=== PATIENT | male | born 1960 | race Caucasian/White ===

== ENCOUNTER 2017-01-20 14:51 | Emergency (ER) | payer MEDICARE | END 2017-01-20 16:15 | disposition home or self-care (01) | LOC: ERS 14:51 | DX: S51.801A Unspecified open wound of right forearm, initial encounter (principal); E78.5 Hyperlipidemia, unspecified; I10 Essential (primary) hypertension; N40.0 Benign prostatic hyperplasia without lower urinary tract symptoms; F41.9 Anxiety disorder, unspecified; F31.9 Bipolar disorder, unspecified; F17.210 Nicotine dependence, cigarettes, uncomplicated; Z86.73 Personal history of transient ischemic attack (TIA), and cerebral infarction without residual deficits; Z79.84 Long term (current) use of oral hypoglycemic drugs; Z79.899 Other long term (current) drug therapy; X58.XXXA Exposure to other specified factors, initial encounter | CPT/HCPCS: 99283 ==

== ENCOUNTER 2017-02-25 08:54 | Inpatient (IN) | payer MEDICARE, MEDICAID ==
[2017-02-24 15:21] VITALS: BMI 31.1
[2017-02-25] MEDS ORDERED: Clindamycin/D5W 900 mg/50 ml Premix Bag ONE (09:39)
[2017-02-25 10:08] LABS: #Basophils 0.1 thou/uL (0.0-0.2); #Eosinphils 0.3 thou/uL (0.0-0.7); #Lymphocytes 3.3 thou/uL (1.20-3.40); #Monocytes 1.2 thou/uL (0.11-0.59); #Neutrophils 10.9 thou/uL (1.40-6.50); %Basophils 0.9 % (0.0-1.0); %Eosinophils 1.6 % (0.0-10.0); %Lymphocytes 20.7 % (21.0-51.0); %Monocytes 7.8 % (0.0-10.0); Hematocrit 50.2 % (42.0-52.0); Mean Platelet Volume 7.2 fL (7.4-10.4); White Blood Cell (WBC) Count 15.8 thou/uL (4.8-10.8)
[2017-02-25 10:29] LABS: Anion Gap 12 mmol/L (10-20); BUN (Urea Nitrogen) 16 mg/dL (8.4-25.7); Calc. Creatinine Clearance 148 mL/min (70-130); Calcium 10.4 mg/dL (7.8-10.44); Carbon Dioxide 21 mmol/L (22-29); Chloride 106 mmol/L (98-107); Estimated GFR-MDRD Greater than 90
[2017-02-25] MEDS ORDERED: Midazolam HCl 2 mg/2 ml Vial ONE ×2 (10:47→12:46)
[2017-02-25] MEDS ORDERED: Fentanyl 100 MCG/2 ML VIAL ONE ×3 (12:46→16:18)
[2017-02-25] MEDS ORDERED: Sodium Chloride 0.9% 10 ML ONE (12:52)
[2017-02-25] MEDS ORDERED: Bupivacaine PF 0.5% 30 ML VIAL ONE (12:52)
[2017-02-25] MEDS ORDERED: Lidocaine 1% (PF) 30 ML VIAL ONE (12:52)
[2017-02-25] MEDS ORDERED: Thrombin 5000 UNITS/5 ML VIAL ONE (12:53)
[2017-02-25] MEDS ORDERED: Bacitracin Zinc Ointment 30 gm TUBE ONE (12:53)
[2017-02-25] MEDS ORDERED: Lidocaine 1% PF 5 ML VIAL ONE (14:38)
[2017-02-25] MEDS ORDERED: Propofol 200 MG/20 ML VIAL ONE (14:38)
[2017-02-25] MEDS ORDERED: ePHEDrine/0.9% NaCl/PF SYRINGE 50 mg/10 ml ONE (14:38)
[2017-02-25] MEDS ORDERED: diphenhydrAMINE 50 MG/ML VIAL ONE (14:38)
[2017-02-25] MEDS ORDERED: Ondansetron HCl/PF 4 MG/2 ML Vial ONE (14:38)
[2017-02-25] MEDS ORDERED: HYDROmorphone 2 MG/ML VIAL SLOW IVP PRN (15:18)
[2017-02-25] MEDS ORDERED: Meperidine HCl/PF 25 MG/ML VIAL SLOW IVP PRN (15:18)
[2017-02-25] MEDS ORDERED: Morphine Sulfate 2 MG/ML SYRINGE SLOW IVP PRN (15:18)
[2017-02-25] MEDS ORDERED: Promethazine HCl 25 MG/ML VIAL SLOW IVP PRN (15:18)
[2017-02-25] MEDS ORDERED: traMADol HCl 50 MG TAB PO PRN (15:37)
[2017-02-25] MEDS ORDERED: Bisacodyl 10 MG SUPP PR PRN (15:37)
[2017-02-25] MEDS: Clindamycin/D5W 900 MG in Premix Bag 1 BAG IVPB SCH ×2 (18:10→23:47)
[2017-02-25] MEDS: Lactated Ringer's 1,000 ML IV SCH (18:10)
[2017-02-25] MEDS: Morphine 4 MG/ML VIAL SLOW IVP PRN ×2 (20:01→23:47)
[2017-02-25] MEDS: Famotidine/PF 20 mg/2ml Vial SLOW IVP SCH (20:01)
[2017-02-26] MEDS: Morphine 4 MG/ML VIAL SLOW IVP PRN ×6 (03:27→15:59)
[2017-02-26] MEDS: Clindamycin/D5W 900 MG in Premix Bag 1 BAG IVPB SCH ×3 (05:37→17:38)
--- NOTE | 2017-02-26 07:04 | OP ---
DATE OF SURGERY: 02/25/2017 PREOPERATIVE DIAGNOSIS: An 8 cm long x 6 mm diameter area of exposed tendon now lying outside of a p revious Integra region. POSTOPERATIVE FINDINGS: Intact cutaneous region underneath the tendon with a 1 cm long x 6 mm wide t unnel through the tendon lying extracutaneous. PROCEDURES PERFORMED: 1. Radical flexor pollicis longus, tenosynovectomy to get down to only tendon from the area of irrit ation. 2. Tendon relocation. 3. Fasciocutaneous flap creation, elevation and closure, 10 cm x 4 cm. 4. Median nerve neuroplasty at the forearm and wrist. INDICATIONS: The patient is over a year since he had a carpal tunnel syndrome leading to infection, muscle and tendon loss. He now has primary function of his thumb flexion, extension while the other digits flexor digitorum are not active. There was known to be scar. This operation was to try to ac hieve coverage in a patient who has refused flap from plastic surgeon, but who has been cooperative u sing appropriate Sorbsan-Calcium Alginate dressing over the last 3 weeks. [place] [facility] [place]. DESCRIPTION OF PROCEDURE: After successful general endotracheal anesthesia, the limb was prepped and draped. Anesthesia was performed by [place] of General LMA technique. The patient then had inspection of the tendon with the flexion, extension of the thumb and he saw no gross infection. He had marked hypertrophic tissue over the tendon but undergoing dressing changes, so we performed a radical flexor tenosynovectomy. Then, we realized that the skin underneath was intact, skin in resp onse to Integra and previous skin grafting and that it was probably thickened off if we could elevate it with good blood supply to cover this area. Then, we finished the radical flexor pollicis longus tenosynovectomy, we then raised the flap beginning on the radial side making the only base 2.5 cm rad ial to the exposed, but now tenosynovectomized tendon. Then, we elevated the flap, but we had to fir st do a median nerve neuroplasty as it was underneath the flexor pollicis longus tendon and once this was done, we were able to elevate a flap of tissue that was almost 3 mm thick at its deepest and 2 m m at is thinnest. We then elevated this and made a semicircle extension of the flap for 2.5 cm on ei ther side of the slit where the flexor pollicis longus went in the subcutaneous or depending on your advantage point, came out of subcutaneous and became cutaneous. We opened that small bridge on the u lnar, radial side, continued elevation, debrided this area with tenotomy scissors and then released t he tourniquet to make sure that all areas were not bleeding. We saw bleeding from the edges of the f lap, it is most distal to proximal area and especially along its radial edge. The base on the ulnar side was also bleeding. The tendon was now completely devoid of any inflammatory tissue and we removed it deep to the subcuta neous region from prior location. We then translocated the tendon underneath the flap, then with the flap, bleeding edges closed with flap rotating it superiorly/distally to close that defect and then rotated a zigzag base proximally and closed the proximal defect from where the tendon is to go throug h the skin. The tendon had excellent bleeding as well when the tourniquet was deflated after 37 nat winsome. We obtained hemostasis. We closed the flap in a simple closure with multiple 4-0 nylon sutures . Bacitracin, Adaptic, 4 x 4's, Kerlix bulky dressing with Coban, which is the patient's preference for outer dressing, was applied. Hopefully, this will be the last operation for this patient, especi ally his hand.
[2017-02-26] MEDS: Lactated Ringer's 1,000 ML IV SCH (08:25)
[2017-02-26] MEDS: Famotidine/PF 20 mg/2ml Vial SLOW IVP SCH ×2 (08:26→20:01)
[2017-02-26] MEDS: HYDROcodone/Acetaminophen 7.5/325 mg Tablet PO PRN ×2 (17:42→22:32)
[2017-02-26] MEDS: Meperidine HCl/PF 25 MG/ML VIAL IM PRN (19:54)
[2017-02-26] MEDS: Promethazine HCl 25 MG/ML VIAL IM PRN (19:56)
[2017-02-27] MEDS: Clindamycin/D5W 900 MG in Premix Bag 1 BAG IVPB SCH ×3 (00:04→11:56)
[2017-02-27] MEDS: Meperidine HCl/PF 25 MG/ML VIAL IM PRN ×3 (02:33→17:28)
[2017-02-27] MEDS: Promethazine HCl 25 MG/ML VIAL IM PRN ×3 (02:33→17:29)
[2017-02-27] MEDS: Lactated Ringer's 1,000 ML IV SCH ×2 (02:33→11:58)
[2017-02-27] MEDS: Famotidine/PF 20 mg/2ml Vial SLOW IVP SCH (09:32)
[2017-02-27] MEDS: metFORMIN 500 MG TAB PO SCH ×2 (09:32→17:22)
[2017-02-27] MEDS: Fluconazole 100 MG TAB PO SCH (09:35)
[2017-02-27] MEDS: FLUoxetine HCl 20 MG CAP PO SCH (09:36)
[2017-02-27] MEDS: lamoTRIgine 25 MG TAB PO SCH ×2 (09:39→22:47)
[2017-02-27] MEDS ORDERED: Atorvastatin Calcium 20 MG TAB PO SCH (21:00)
[2017-02-27] MEDS ORDERED: Mirtazapine 15 MG TAB PO SCH (21:00)
[2017-02-27] MEDS ORDERED: Divalproex Sodium DR 500 MG TAB PO SCH (21:00)
--- NOTE | 2017-02-27 21:22 | CON ---
DATE OF CONSULTATION: 02/27/2017 CONSULTING PHYSICIAN: Case Leong MD IMPRESSION: 1. Probable complex migraines. 2. History of stroke with left hemiparesis. 3. Diabetes. 4. Hyperlipidemia. PLAN: 1. Add Lipitor 20 mg per day. 2. Continue aspirin. 3. Start Depakote 500 mg at bedtime. 4. Office followup. HISTORY OF PRESENT ILLNESS: Mr. Carmona is a 56-year-old man with past history of stroke and residual left hemiparesis. Over the last year, he has had numerous episodes of perioral numbness followed by numbness of the right arm and a transient headache that usually lasts less than 30 minutes. He has never lost consciousness. It can make him feel a bit dizzy. It does not alter his vision or make hi m light sensitive. He does not have nausea or vomiting. It does not cause any focal weakness or slu rred speech. He has not found any pattern to the events. Most of them occur while he is relaxed. Trinidad enciso has never had any while sleeping. He has never had any alteration of consciousness. PAST MEDICAL HISTORY: As listed above. ALLERGIES: VANCOMYCIN, LATEX. FAMILY HISTORY: Noncontributory. SOCIAL HISTORY: Unremarkable. REVIEW OF SYSTEMS: Otherwise, noncontributory. PHYSICAL EXAMINATION: GENERAL: He is a somewhat overweight middle-aged man in no distress. HEENT: Pupils equal and reactive. Conjunctivae clear. Oropharynx is clear. NECK: No lymphadenopathy. EXTREMITIES: No cyanosis. NEUROLOGIC: He is alert and cooperative. His speech is fluent and clear. Cranial nerves II-XII are intact other than a subtle left facial droop. Motor exam shows a spastic left upper extremity pares is. Gait was not testable. No abnormal movements were seen. Sensation was intact bilaterally. SUMMARY: Given the atypical perioral involvement, it is highly unlikely that this is related to an i schemic event and more likely migrainous in origin. I will be happy to follow up with him for his ma nagement.
[2017-02-27] MEDS: Famotidine 20 MG TAB PO SCH (22:46)
[2017-02-28] MEDS: Lactated Ringer's 1,000 ML IV SCH (08:23)
[2017-02-28 08:32] VITALS: BP 119/73; TEMP 98.2
[2017-02-28] MEDS: metFORMIN 500 MG TAB PO SCH (09:00)
[2017-02-28] MEDS: Famotidine 20 MG TAB PO SCH (09:00)
[2017-02-28] MEDS: lamoTRIgine 25 MG TAB PO SCH (09:00)
[2017-02-28] MEDS: FLUoxetine HCl 20 MG CAP PO SCH (09:00)
[2017-02-28] MEDS: Fluconazole 100 MG TAB PO SCH (09:00)
== END 2017-02-28 11:20 | disposition home health service (06) | DRG 904 ==
LOC: SDC 08:54 → OBSVTOIN 15:36 → SURG B 15:36
PROVIDERS: ADMIT Orthopaedic Surgery Hand Surgery; ATTEND Orthopaedic Surgery Hand Surgery
PROC: 0LB50ZZ Excision of Right Lower Arm and Wrist Tendon, Open Approach (ICD-10-PCS; principal; 2017-02-25)
PROC: 0JXG0ZC Transfer Right Lower Arm Subcutaneous Tissue and Fascia with Skin, Subcutaneous Tissue and Fascia, Open Approach (ICD-10-PCS; 2017-02-25)
PROC: 0LS50ZZ Reposition Right Lower Arm and Wrist Tendon, Open Approach (ICD-10-PCS; 2017-02-25)
PROC: 01S50ZZ Reposition Median Nerve, Open Approach (ICD-10-PCS; 2017-02-25)
DX: T81.89XA Other complications of procedures, not elsewhere classified, initial encounter (principal); I69.954 Hemiplegia and hemiparesis following unspecified cerebrovascular disease affecting left non-dominant side; I10 Essential (primary) hypertension; F32.9 Major depressive disorder, single episode, unspecified; N40.0 Benign prostatic hyperplasia without lower urinary tract symptoms; E11.9 Type 2 diabetes mellitus without complications; M47.9 Spondylosis, unspecified; Z88.1 Allergy status to other antibiotic agents; F17.210 Nicotine dependence, cigarettes, uncomplicated; G43.109 Migraine with aura, not intractable, without status migrainosus; E78.5 Hyperlipidemia, unspecified; Z91.040 Latex allergy status
CPT/HCPCS: 36415; 80048; 85025; 85652; 87070; 87076; 87077; 87186; 87205; 88305; 88312; 96374; A4216; G8987-GO-CJ; G8988-GO-CI; J1200; J2001; J2175; J2250; J2270; J2405; J2550; J2704; J3010; J3490; S0020; S0028

== ENCOUNTER 2017-03-14 06:31 | Inpatient (IN) | payer MEDICARE, MEDICAID ==
[2017-03-13 08:30] VITALS: BMI 31.1
[2017-03-14] MEDS ORDERED: Midazolam HCl 2 mg/2 ml Vial ONE (06:41)
[2017-03-14] MEDS ORDERED: Fentanyl 100 MCG/2 ML VIAL ONE ×3 (06:41→10:28)
[2017-03-14] MEDS ORDERED: Lidocaine 1% (PF) 30 ML VIAL ONE (07:03)
[2017-03-14] MEDS ORDERED: Bupivacaine PF 0.5% 30 ML VIAL ONE (07:03)
[2017-03-14] MEDS ORDERED: Bacitracin Zinc Ointment 30 gm TUBE ONE (07:04)
[2017-03-14] MEDS ORDERED: Thrombin 5000 UNITS/5 ML VIAL ONE (07:04)
[2017-03-14] MEDS ORDERED: Promethazine HCl 25 MG/ML VIAL ONE (07:43)
[2017-03-14] MEDS ORDERED: traMADol HCl 50 MG TAB PO PRN (09:24)
[2017-03-14] MEDS ORDERED: Promethazine HCl 25 MG/ML VIAL IM PRN (09:27)
[2017-03-14] MEDS ORDERED: Ondansetron HCl/PF 4 MG/2 ML Vial IVP PRN (09:27)
[2017-03-14] MEDS ORDERED: Promethazine HCl 25 MG/ML VIAL SLOW IVP PRN (09:27)
--- NOTE | 2017-03-14 10:00 | OP ---
DATE OF PROCEDURE: 03/14/2017 SURGEON: Case Leong M.D. PREOPERATIVE DIAGNOSIS: Right hand open wound with a Staph infection. POSTOPERATIVE DIAGNOSES: Gross purulence around the thickened tenosynovial over the exposed flexor p ollicis longus, nowhere else was there no gross purulence including distal and proximal to where the tendon was covered with scab. PROCEDURE PERFORMED: 1. Tenosynovectomy radical, flexor pollicis longus tendon, wrist and forearm level. 2. Debridement, intermediate depth down to, but not including bone and joint of the forearm and wris t, right. 3. Application of wound VAC, less than 100 square cm. ESTIMATED BLOOD LOSS: 20 mL. TOURNIQUET TIME: 15 minutes. COMPLICATIONS: None. INDICATIONS: The patient had an attempt at coverage of his wound and had necrosis of the 1 cm wide i ncision area. Then, he had a positive culture and the exposed tendon began to show gross purulence a pproximately 5-6 days ago. He has been resistant to long-term VAC use or even a flap from his chest wall or groin, but I informed him that this infection could not be allowed to stay, so he agreed to d ebridement, admission with the VAC plus or minus Integra, and a second procedure as needed. DESCRIPTION OF PROCEDURE: After successful general endotracheal anesthesia by [place] completed by Mr. Ravin Alston CRNA, the patient had the wound prepped and draped, timeout was done appropriately. Limb was exsanguinated, tourniquet inflated to 250 mmHg pressure. We then began to u ndermine the edges of the wound, debrided 1 mm circumference of tendon of tissue around using the dimitri e instrumentation technique that was used throughout the entire procedure for all debridements: A) Excisional technique. B) Instrumentation would be [place] blade, 11 blade knife, tenotomy scissors a angel and curet; C) there would be some purulence found around the tendon debridement, but none anywher e else and the depth would be other than the tendon itself down to, but not including bone. Once we finished accomplishing debridement then began a radical flexor tenosynovectomy of the palmari s longus. So we began 1 cm proximal to the opening where the tendon was exposed. Began to slowly pe el off with tenotomy scissors and the other instruments listed for debridement, the layer of slime th at was grossly infected and also the thickened area which had developed in only 4 weeks since his las t procedure. Once we had done this, then inspected the bed circumferentially, the edges of the skin, finished the debridement with the instrumentation techniques listed above and then irrigated with Pulsavac 3 liter s normal saline with antibiotics inside without complication. Tourniquet was deflated, hemostasis ob tained. We then placed the VAC dressings using a careful technique. We first put the plastic to cov er the skin edges, cut out a place, put a white VAC sponge over the tendon and then black on top of t his, had excellent suction with no leak potential. A bulky dressing was applied. He left the operat ing room without evidence of anesthetic or operative complications.
[2017-03-14] MEDS: HYDROcodone/Acetaminophen 7.5/325 mg Tablet PO PRN (12:50)
[2017-03-14] MEDS: Clindamycin/D5W 900 MG in Premix Bag 1 BAG IVPB SCH ×3 (14:40→20:01)
[2017-03-14] MEDS: Ketorolac Tromethamine 30 MG/ML VIAL IVP SCH ×3 (14:41→21:12)
[2017-03-14] MEDS: Morphine 4 MG/ML VIAL IV PRN ×2 (14:44→19:58)
[2017-03-14] MEDS ORDERED: Ondansetron HCl/PF 4 MG/2 ML Vial ONE (15:51)
[2017-03-14] MEDS ORDERED: Lidocaine 1% PF 5 ML VIAL ONE (15:51)
[2017-03-14] MEDS ORDERED: ePHEDrine/0.9% NaCl/PF SYRINGE 50 mg/10 ml ONE (15:51)
[2017-03-14] MEDS ORDERED: PHENYLEPHRINE-NS 100 MCG/ML 10 ML SYRINGE ONE (15:51)
[2017-03-14] MEDS ORDERED: Propofol 200 MG/20 ML VIAL ONE (15:51)
[2017-03-14] MEDS ORDERED: Dextrose 5% in Water 1,000 ML IV PRN (17:31)
[2017-03-14] MEDS ORDERED: Dextrose 50% Abboject 50 ML SYRINGE IVP PRN (17:31)
[2017-03-14] MEDS ORDERED: Insulin Regular 300 UNITS/3 ML VIAL SC PRN (17:31)
[2017-03-14] MEDS ORDERED: HYDROcodone/Acetaminophen 7.5/325 mg Tablet PO PRN (17:44)
[2017-03-14] MEDS: Lactated Ringer's 1,000 ML IV SCH ×2 (19:56→21:12)
[2017-03-14] MEDS: Mirtazapine 15 MG TAB PO SCH (20:01)
[2017-03-14] MEDS: lamoTRIgine 25 MG TAB PO SCH (20:01)
--- NOTE | 2017-03-14 21:32 | CON ---
DATE OF CONSULTATION: 03/14/2017 DATE OF ADMISSION: 03/14/2017 ADMITTING PHYSICIAN: Dr. Case Leong. CHIEF COMPLAINT: Right-hand wound. HISTORY OF PRESENT ILLNESS: Patient is a gentleman well known to us with multiple medical problems. He presented with a right-hand wound that appears to be infected with Staphylococcus. Patient was s een and assessed by Dr. Leong and taken to the OR for tenosynovectomy as well as debridement and a pplication of wound VAC. Patient during my interview denies any chest pain, shortness of breath, fev er, or chills. We are being consulted to help manage his chronic medical problems including, but not limited to, diabetes type 2 and hypertension. PAST MEDICAL HISTORY: Significant for diabetes type 2, bipolar disorder, CVA, carpal tunnel syndrome , and multiple bouts of cellulitis. PAST SURGICAL HISTORY: Significant for appendectomy, vasectomy, ankle fracture. SOCIAL HISTORY: He is a smoker. Lives alone. FAMILY HISTORY: Positive for diabetes and coronary artery disease. REVIEW OF SYSTEMS: The following complete review of systems was negative, unless otherwise mentioned in the HPI or below: Constitutional: Weight loss or gain, sense of well-being, ability to conduct usual activities, exerc ise tolerance. Skin/Breast: Rash, itching, changes in hair growth or loss, nail changes, breast lumps, tenderness, swelling, nipple discharge. Eyes: Vision, double vision, tearing, blind spots, pain. ENT/Mouth: Headaches (location, time of onset, duration, precipitating factors), vertigo, lightheade dness, injury. Vision, double vision, tearing, blind spots, pain, nose bleeding, colds, obstruction, discharge, dental difficulties, gingival bleeding, dentures, neck stiffness, pain, tenderness, tasneem s in thyroid or other areas. Cardiovascular: Precordial pain, substernal distress, palpitations, syncope, dyspnea on exertion, o rthopnea, nocturnal paroxysmal dyspnea, edema, cyanosis, hypertension, heart murmurs, varicosities, p hlebitis, claudication. Respiratory: Pain, shortness of breath, wheezing, stridor, cough, hemoptysis, fever or night sweats. Gastrointestinal: Poor appetite, dysphagia, indigestion, abdominal pain, heartburn, eructation, naus ea, vomiting, hematemesis, jaundice, constipation, or diarrhea, abnormal stools (caridad-colored, tarry, bloody, greasy, foul smelling), flatulence, hemorrhoids, recent changes in bowel habits. Genitourinary: Urgency, frequency, dysuria, nocturia, hematuria, polyuria, oliguria, unusual (or laquita nge in) color of urine, stones, hesitancy, change in size of stream, dribbling, acute retention or in continence, libido, potency. Musculoskeletal: Pain, swelling, redness or heat of muscles or joints, limitation, of motion, muscul ar weakness, atrophy, cramps. Neurologic/Psychiatric: Convulsions, paralyzes, tremor, incoordination, paresthesias, difficulties w ith memory of speech, sensory or motor disturbances, or muscular coordination (ataxia, tremor), emoti onal problems, anxiety, depression, previous psychiatric care, unusual perceptions, hallucinations. Allergy/Immunologic: Skin rash, anemia, bleeding tendency, polydipsia, polyuria, intolerance to heat or cold. ALLERGIES: Patient is allergic to SULFAMETHOXAZOLE, TRIMETHOPRIM, VANCOMYCIN. LABORATORY DATA AND IMAGES: Capillary blood glucose of 170. ASSESSMENT AND PLAN: 1. Right hand cellulitis. 2. Diabetes, type 2. 3. Hypertension. 4. Bipolar disorder. PLAN: Patient is admitted to the surgical service. We will manage his diabetes and hypertension. P atient will be placed on low-dose sliding scale insulin regimen with q.a.c and at bedtime, capillary blood glucose checks. We will continue the patient's home regimen for his hypertension and adjust th e medications accordingly. Patient is currently on antimicrobial therapy. If need be, we will alter his medication and/or obtain Infectious Disease input. Thank you for allowing us to participate in the care of this patient.
[2017-03-15] MEDS: Clindamycin/D5W 900 MG in Premix Bag 1 BAG IVPB SCH ×4 (03:14→20:17)
[2017-03-15] MEDS: Ketorolac Tromethamine 30 MG/ML VIAL IVP SCH ×3 (03:14→15:02)
[2017-03-15] MEDS: Morphine 4 MG/ML VIAL IV PRN ×5 (06:28→21:53)
[2017-03-15] MEDS: FLUoxetine HCl 20 MG CAP PO SCH (08:21)
[2017-03-15] MEDS: lamoTRIgine 25 MG TAB PO SCH ×2 (08:22→20:17)
[2017-03-15] MEDS: metFORMIN 500 MG TAB PO SCH ×2 (08:22→18:28)
[2017-03-15] MEDS ORDERED: FLU VACC QS2017-18 36 mo. & older 0.5 ML SYRINGE IM ONE (09:00)
--- NOTE | 2017-03-15 09:34 | PDOC.PN ---
- Subjective Encounter Start Date: 03/15/17 Encounter Start Time: 09:00 Subjective: doing well, no new complaints - Objective MAR Reviewed: Yes Vital Signs & Weight: Vital Signs (12 hours) Temp Pulse Resp BP Pulse Ox 03/15/17 07:35 98.1 F 88 18 133/83 99 03/15/17 02:55 98.5 F 65 18 135/62 93 L 03/15/17 00:00 98.0 F 65 20 185/82 H 94 L Weight Weight 230 lb I&O: 03/14/17 03/15/17 03/16/17 06:59 06:59 06:59 Intake Total 950 Balance 950 Additional Labs: Accuchecks 03/15/17 03/14/17 03/14/17 05:19 20:24 16:15 POC Glucose 98 117 H 170 H Phys Exam - Physical Examination Constitutional: NAD HEENT: PERRLA, moist MMs Neck: supple, full ROM Respiratory: no wheezing, clear to auscultation bilateral Cardiovascular: RRR, no significant murmur Gastrointestinal: soft, non-tender Musculoskeletal: no edema Neurological: non-focal, normal sensation, moves all 4 limbs Psychiatric: normal affect, A&O x 3 Deviation from normal: mx wounds with erythema, wound vacc to rt hand Dx/Plan - Plan * .
[2017-03-15] MEDS: Lactated Ringer's 1,000 ML IV SCH (18:33)
[2017-03-15] MEDS: Mirtazapine 15 MG TAB PO SCH (20:17)
[2017-03-15] MEDS: HYDROcodone/Acetaminophen 7.5/325 mg Tablet PO PRN (20:19)
[2017-03-16] MEDS: Clindamycin/D5W 900 MG in Premix Bag 1 BAG IVPB SCH ×2 (03:06→08:10)
[2017-03-16] MEDS: HYDROcodone/Acetaminophen 7.5/325 mg Tablet PO PRN ×4 (03:25→15:34)
[2017-03-16 04:57] LABS: #Basophils 0.1 thou/uL (0.0-0.2); #Eosinphils 0.3 thou/uL (0.0-0.7); #Lymphocytes 2.5 thou/uL (1.20-3.40); #Monocytes 1.4 thou/uL (0.11-0.59); #Neutrophils 7.7 thou/uL (1.40-6.50); %Basophils 0.8 % (0.0-1.0); %Eosinophils 2.5 % (0.0-10.0); %Lymphocytes 20.7 % (21.0-51.0); %Monocytes 11.4 % (0.0-10.0); Hematocrit 42.8 % (42.0-52.0); Mean Platelet Volume 8.3 fL (7.4-10.4); Red Blood Cell (RBC) Count 4.59 mill/uL (4.70-6.10); White Blood Cell (WBC) Count 11.9 thou/uL (4.8-10.8)
[2017-03-16] MEDS: FLUoxetine HCl 20 MG CAP PO SCH (08:10)
[2017-03-16] MEDS: lamoTRIgine 25 MG TAB PO SCH ×2 (08:10→21:58)
[2017-03-16] MEDS: metFORMIN 500 MG TAB PO SCH ×2 (08:10→18:00)
[2017-03-16] MEDS: Lactated Ringer's 1,000 ML IV SCH ×2 (11:37→15:27)
[2017-03-16] MEDS ORDERED: Gentamicin Sulfate 80 MG in Premix Bag 1 BAG IVPB SCH (14:30)
[2017-03-16 14:51] LABS: #Basophils 0.1 thou/uL (0.0-0.2); #Eosinphils 0.3 thou/uL (0.0-0.7); #Lymphocytes 2.2 thou/uL (1.20-3.40); #Monocytes 0.9 thou/uL (0.11-0.59); #Neutrophils 7.9 thou/uL (1.40-6.50); %Basophils 0.8 % (0.0-1.0); %Eosinophils 2.9 % (0.0-10.0); %Lymphocytes 19.1 % (21.0-51.0); Hematocrit 42.3 % (42.0-52.0); Mean Platelet Volume 7.5 fL (7.4-10.4); Red Blood Cell (RBC) Count 4.56 mill/uL (4.70-6.10); White Blood Cell (WBC) Count 11.5 thou/uL (4.8-10.8)
[2017-03-16 15:11] LABS: Anion Gap 12 mmol/L (10-20); BUN (Urea Nitrogen) 11 mg/dL (8.4-25.7); Calc. Creatinine Clearance 156 mL/min (70-130); Calcium 8.9 mg/dL (7.8-10.44); Carbon Dioxide 21 mmol/L (22-29); Chloride 106 mmol/L (98-107); Estimated GFR-MDRD Greater than 90
[2017-03-16] MEDS: Morphine 4 MG/ML VIAL IV PRN ×2 (18:00→21:57)
--- NOTE | 2017-03-16 21:02 | PDOC.PN ---
- Subjective Encounter Start Date: 03/16/17 Encounter Start Time: 14:00 No new complaints. No overnight events - Objective MAR Reviewed: Yes Vital Signs & Weight: Vital Signs (12 hours) Temp Pulse Resp BP Pulse Ox 03/16/17 16:21 98.3 F 62 15 171/76 H 94 L 03/16/17 12:06 97.8 F 68 18 149/82 H 96 Weight Weight 230 lb I&O: 03/15/17 03/16/17 03/17/17 06:59 06:59 06:59 Intake Total 950 2450 3190 Output Total 1700 975 Balance 645 767 4087 Result Diagrams: 03/17/17 04:52 03/16/17 14:42 Additional Labs: Accuchecks 03/16/17 03/16/17 03/16/17 15:40 10:28 06:43 POC Glucose 100 129 H 89 03/15/17 21:10 POC Glucose 128 H Phys Exam - Physical Examination Constitutional: NAD Respiratory: no wheezing, no rhonchi Cardiovascular: RRR, no rub Gastrointestinal: soft, positive bowel sounds Neurological: moves all 4 limbs Psychiatric: A&O x 3 Dx/Plan - Plan DVT proph w/SCDs IMPRESSION: 1. HTN - stable on Toprol 2. DM2 - on sliding scale 3. Obesity BMI 31.2 4. Depression PLAN: * Cont current meds as below * BP stable Review of Systems - Medications/Allergies Allergies/Adverse Reactions: Allergies Allergy/AdvReac Type Severity Reaction Status Date / Time sulfamethoxazole Allergy whelps Verified 03/14/17 17:15 [From Bactrim] trimethoprim [From Bactrim] Allergy whelps Verified 03/14/17 17:15 vancomycin Allergy Hives Verified 03/14/17 17:15 Medications: Current Medications Hydrocodone Bitart/Acetaminophen ([place] 7.5/325) 1 tab PO Q4H PRN PRN Reason: Mild Pain (1-3) Last Admin: 03/16/17 11:35 Dose: 1 tab Hydrocodone Bitart/Acetaminophen ([place] 7.5/325) 1 tab PO Q8HR PRN PRN Reason: Pain Last Admin: 03/16/17 11:35 Dose: 1 tab Hydrocodone Bitart/Acetaminophen ([place] 7.5/325) 2 tab PO Q4H PRN PRN Reason: Severe Pain (7-10) Last Admin: 03/16/17 15:34 Dose: 2 tab Aspirin (Aspirin Chewable) 81 mg PO DAILY [facility] Last Admin: 03/16/17 08:10 Dose: 81 mg Dextrose/Water (Dextrose 50%) 25 gm IVP PRN PRN PRN Reason: HYPOGLYCEMIA PROTOCOL Fluoxetine HCl (Prozac) 20 mg PO DAILY [facility] Last Admin: 03/16/17 08:10 Dose: 20 mg Glucagon (Glucagon) 1 mg IM PRN PRN PRN Reason: HYPOGLYCEMIA PROTOCOL Lactated Ringer's (Lactated Ringer's) 1,000 mls @ 65 mls/hr IV .[id number] [facility] Last Admin: 03/16/17 15:27 Dose: 1,000 mls Dextrose/Water (D5w) 1,000 mls @ 0 mls/hr IV INF PRN; As Directed PRN Reason: HYPOGLYCEMIA PROTOCOL Gentamicin Sulfate 80 mg/ (Device) 100 mls @ 200 mls/hr IVPB Q8HR [facility] Stop: 03/17/17 06:29 Levofloxacin 500 mg/ Device 100 mls @ 100 mls/hr IVPB 1500 [facility] Stop: 03/18/17 17:00 Insulin Human Regular (Humulin R) 0 units SC .MODERATE SLIDING SC PRN; Protocol PRN Reason: MODERATE SLIDING SCALE Lamotrigine (Lamictal) 25 mg PO BID [facility] Last Admin: 03/16/17 08:10 Dose: 25 mg Metformin HCl (Glucophage) 500 mg PO BID[facility] Last Admin: 03/16/17 18:00 Dose: 500 mg Metoprolol Succinate (Toprol Xl) 50 mg PO DAILY [facility] Last Admin: 03/16/17 08:10 Dose: 50 mg Mirtazapine (Remeron) 15 mg PO HS [facility] Last Admin: 03/15/17 20:17 Dose: 15 mg Morphine Sulfate (Morphine) 2 mg IV Q2H PRN PRN Reason: Moderate Pain (4-6) Last Admin: 03/16/17 18:00 Dose: 2 mg Pantoprazole Sodium (Protonix) 40 mg PO DAILY [facility] Last Admin: 03/16/17 08:10 Dose: 40 mg Sodium Chloride (Flush - Normal Saline) 10 ml IVF PRN PRN PRN Reason: Saline Flush Tramadol HCl (Ultram) 50 mg PO Q6H PRN PRN Reason: Mild Pain (1-3) Last Admin: 03/16/17 03:24 Dose: 50 mg
[2017-03-16] MEDS: Mirtazapine 15 MG TAB PO SCH (21:58)
[2017-03-16] MEDS: Gentamicin Sulfate 80 MG in Premix Bag 1 BAG IVPB SCH (21:59)
[2017-03-17 05:10] LABS: #Basophils 0.1 thou/uL (0.0-0.2); #Eosinphils 0.4 thou/uL (0.0-0.7); #Monocytes 1.1 thou/uL (0.11-0.59); #Neutrophils 6.3 thou/uL (1.40-6.50); %Basophils 0.8 % (0.0-1.0); %Eosinophils 4.1 % (0.0-10.0); %Monocytes 10.7 % (0.0-10.0); Hematocrit 41.9 % (42.0-52.0); Mean Platelet Volume 7.7 fL (7.4-10.4); Red Blood Cell (RBC) Count 4.49 mill/uL (4.70-6.10); White Blood Cell (WBC) Count 9.8 thou/uL (4.8-10.8)
[2017-03-17] MEDS: Gentamicin Sulfate 80 MG in Premix Bag 1 BAG IVPB SCH (06:12)
[2017-03-17] MEDS: Lactated Ringer's 1,000 ML IV SCH ×2 (06:12→20:57)
[2017-03-17] MEDS: metFORMIN 500 MG TAB PO SCH ×2 (08:22→17:00)
[2017-03-17] MEDS: FLUoxetine HCl 20 MG CAP PO SCH (09:24)
[2017-03-17] MEDS: lamoTRIgine 25 MG TAB PO SCH ×2 (09:24→20:57)
[2017-03-17] MEDS ORDERED: Glycopyrrolate 0.2 MG/ML 5 ML SYRINGE ONE (10:57)
[2017-03-17] MEDS ORDERED: Lidocaine 1% PF 5 ML VIAL ONE (10:57)
[2017-03-17] MEDS ORDERED: ePHEDrine/0.9% NaCl/PF SYRINGE 50 mg/10 ml ONE (10:57)
[2017-03-17] MEDS ORDERED: Ondansetron HCl/PF 4 MG/2 ML Vial ONE (10:57)
[2017-03-17] MEDS ORDERED: Propofol 200 MG/20 ML VIAL ONE (10:57)
[2017-03-17] MEDS: Morphine 4 MG/ML VIAL IV PRN ×2 (15:03→21:19)
[2017-03-17] MEDS ORDERED: Midazolam HCl 2 mg/2 ml Vial ONE (16:46)
[2017-03-17] MEDS ORDERED: Fentanyl 100 MCG/2 ML VIAL ONE ×4 (16:46→20:19)
[2017-03-17] MEDS ORDERED: Sodium Chloride 0.9% 30 ML ONE (16:52)
--- NOTE | 2017-03-17 17:02 | PDOC.PN ---
- Subjective Encounter Start Date: 03/17/17 Encounter Start Time: 12:00 Patient seen and examined. No new complaints. No overnight events - Objective MAR Reviewed: Yes Vital Signs & Weight: Vital Signs (12 hours) Temp Pulse Resp BP Pulse Ox 03/17/17 15:49 98.9 F 58 L 18 159/82 H 98 03/17/17 11:01 98.3 F 62 16 173/84 H 94 L 03/17/17 08:30 98.9 F 66 16 03/17/17 08:15 98.9 F 66 16 167/73 H 93 L Weight Weight 230 lb I&O: 03/16/17 03/17/17 03/18/17 06:59 06:59 06:59 Intake Total 2450 4170 Output Total 1700 1825 Balance 750 2345 Result Diagrams: 03/17/17 04:52 03/16/17 14:42 Additional Labs: Accuchecks 03/17/17 03/17/17 03/17/17 16:11 11:03 05:40 POC Glucose 94 103 105 03/16/17 21:16 POC Glucose 152 H Phys Exam - Physical Examination Constitutional: NAD Respiratory: no wheezing, no rhonchi Cardiovascular: RRR, no rub Gastrointestinal: soft, non-tender, positive bowel sounds Musculoskeletal: no edema Neurological: moves all 4 limbs Dx/Plan - Plan DVT proph w/SCDs IMPRESSION: 1. HTN 2. DM2 3. Obesity BMI 31.2 4. Depression PLAN: * Cont Toprol and sliding scale * Cont other meds as below Review of Systems - Review of Systems Respiratory: negative: Cough, Dry, Shortness of Breath, Hemoptysis, SOB with Excertion, Pleuritic Pain, Sputum, Wheezing Cardiovascular: negative: Chest Pain, Palpitations, Orthopnea, Paroxysmal Noc. Dyspnea, Edema, Light Headedness - Medications/Allergies Allergies/Adverse Reactions: Allergies Allergy/AdvReac Type Severity Reaction Status Date / Time sulfamethoxazole Allergy whelps Verified 03/14/17 17:15 [From Bactrim] trimethoprim [From Bactrim] Allergy whelps Verified 03/14/17 17:15 vancomycin Allergy Hives Verified 03/14/17 17:15 Medications: Current Medications Hydrocodone Bitart/Acetaminophen ([place] 7.5/325) 1 tab PO Q4H PRN PRN Reason: Mild Pain (1-3) Last Admin: 03/16/17 11:35 Dose: 1 tab Hydrocodone Bitart/Acetaminophen ([place] 7.5/325) 1 tab PO Q8HR PRN PRN Reason: Pain Last Admin: 03/16/17 11:35 Dose: 1 tab Hydrocodone Bitart/Acetaminophen ([place] 7.5/325) 2 tab PO Q4H PRN PRN Reason: Severe Pain (7-10) Last Admin: 03/16/17 15:34 Dose: 2 tab Aspirin (Aspirin Chewable) 81 mg PO DAILY [facility] Last Admin: 03/17/17 09:24 Dose: Not Given Dextrose/Water (Dextrose 50%) 25 gm IVP PRN PRN PRN Reason: HYPOGLYCEMIA PROTOCOL Fluoxetine HCl (Prozac) 20 mg PO DAILY [facility] Last Admin: 03/17/17 09:24 Dose: 20 mg Glucagon (Glucagon) 1 mg IM PRN PRN PRN Reason: HYPOGLYCEMIA PROTOCOL Lactated Ringer's (Lactated Ringer's) 1,000 mls @ 65 mls/hr IV .[id number] [facility] Last Admin: 03/17/17 06:12 Dose: 1,000 mls Dextrose/Water (D5w) 1,000 mls @ 0 mls/hr IV INF PRN; As Directed PRN Reason: HYPOGLYCEMIA PROTOCOL Levofloxacin 500 mg/ Device 100 mls @ 100 mls/hr IVPB 1500 [facility] Stop: 03/18/17 17:00 Last Admin: 03/17/17 14:44 Dose: 100 mls Insulin Human Regular (Humulin R) 0 units SC .MODERATE SLIDING SC PRN; Protocol PRN Reason: MODERATE SLIDING SCALE Lamotrigine (Lamictal) 25 mg PO BID [facility] Last Admin: 03/17/17 09:24 Dose: 25 mg Metformin HCl (Glucophage) 500 mg PO BID-[facility] Last Admin: 03/17/17 17:00 Dose: Not Given Metoprolol Succinate (Toprol Xl) 50 mg PO DAILY [facility] Last Admin: 03/17/17 09:24 Dose: 50 mg Mirtazapine (Remeron) 15 mg PO HS [facility] Last Admin: 03/16/17 21:58 Dose: 15 mg Morphine Sulfate (Morphine) 2 mg IV Q2H PRN PRN Reason: Moderate Pain (4-6) Last Admin: 03/17/17 15:03 Dose: 2 mg Pantoprazole Sodium (Protonix) 40 mg PO DAILY [facility] Last Admin: 03/17/17 09:24 Dose: 40 mg Sodium Chloride (Flush - Normal Saline) 10 ml IVF PRN PRN PRN Reason: Saline Flush Tramadol HCl (Ultram) 50 mg PO Q6H PRN PRN Reason: Mild Pain (1-3) Last Admin: 03/16/17 03:24 Dose: 50 mg
[2017-03-17] MEDS ORDERED: Morphine 4 MG/ML VIAL ONE (18:02)
[2017-03-17] MEDS ORDERED: Bupivacaine PF 0.5% 30 ML VIAL ONE (18:53)
[2017-03-17] MEDS ORDERED: Bacitracin Zinc Ointment 30 gm TUBE ONE (18:53)
[2017-03-17] MEDS ORDERED: Ondansetron HCl/PF 4 MG/2 ML Vial IVP PRN (19:45)
[2017-03-17] MEDS ORDERED: Promethazine HCl 25 MG/ML VIAL IM PRN (19:45)
[2017-03-17] MEDS ORDERED: Promethazine HCl 25 MG/ML VIAL SLOW IVP PRN (19:45)
[2017-03-17] MEDS: Mirtazapine 15 MG TAB PO SCH (20:57)
[2017-03-17] MEDS ORDERED: Gentamicin Sulfate 80 MG in Premix Bag 1 BAG IVPB SCH (21:00)
--- NOTE | 2017-03-18 06:55 | OP ---
DATE OF SURGERY: 03/17/2017 PREOPERATIVE DIAGNOSIS: Open wound, 20 cm right forearm with previous infection. FINDINGS: 1. Flexor pollicis longus tendon has ruptured, which was previously exposed. 2. The patient has grown a very fairly-resistant MRSA on his cultures from 6 days ago. 3. The patient no longer has the elevated white count. He responded to antibiotics, VAC dressing, a nd open dressing changes with calcium alginate dressing. PROCEDURE PERFORMED: 1. Debridement of wound, intermediate depth. A. Depth included down to the previous tendons deep volar compartment, skin, subcutaneous fat, dermi s, epidermis. B. Instruments used: Juncos blade 11 blade knife, tenotomy scissors, Adson, and a Pulsavac 3 liters of normal saline and Pulsavac pressure antibiotics inside. C. Excisional technique. D. There was no gross infection found at any depth to include the deep volar compartment, superficia l, subcutaneous, and proximal and distal aspects of the wound. ANESTHESIA: General LMA technique by [place] anesthesia. SURGEON: Case Leong MD MARKETING TRAFFIC COORDINATOR: Deuce Bryson, Bottom Saw Operator DESCRIPTION OF PROCEDURE: After successful general endotracheal anesthesia, the limb was prepped and draped. During the prepping and draping, we noticed that we could not achieve a clean wound because his nails had such excrement and dirt underneath them, so we elected to not only clean them but to r emove the excrement with the wound covering, and clipped the nail so that this could not become recur rence as the patient has had repeated infections and this might be our last attempt to achieve a heal ing without infection. Once this was done, we then began to the irrigation and debridement as descri bed above. Using a tenotomy scissors, Juncos blade, 11 blade knife to remove 1 mm circumference of s kin edge. Then, we undermined the wound edge proximally to the depth of 1 cm circumferentially easil y then reapproximated the skin/dermis/epidermis. We then finished the irrigation, performed a formal tenotomy. We pulled the tendon into the wound proximally, distally, the ruptured midsubstance, sepa rated from all the neurovascular structures and then cut it. This was the flexor pollicis longus. T his was done proximal and distal and at this point, there was copious bleeding from the wound edge in dicative of excellent circulation. We then used a combination of 2-0 nylon in a mattress pattern pro ximal at the wound, 2-0 nylon in a mattress pattern mid one-third, and distal one-third with 3-0 nylo n. This gave excellent wound apposition, there is no evidence of strangulation over tightening the w ound edges and then, we were prepared to complete the task and the wound edges were closed once this was done. There was no undue tension on the wound with thumb abduction and hyperextension. The patient then had the wound completely closed, Bacitracin, Adaptic were placed over bulky dressing , then the digits and he left the operating room without evidence of anesthetic or operativ e complication.
[2017-03-18] MEDS: metFORMIN 500 MG TAB PO SCH ×2 (08:12→16:27)
[2017-03-18] MEDS: lamoTRIgine 25 MG TAB PO SCH ×2 (08:12→21:10)
[2017-03-18] MEDS: FLUoxetine HCl 20 MG CAP PO SCH (08:12)
[2017-03-18] MEDS: Morphine 4 MG/ML VIAL IV PRN (08:13)
[2017-03-18] MEDS: Lactated Ringer's 1,000 ML IV SCH (16:19)
[2017-03-18] MEDS: HYDROcodone/Acetaminophen 7.5/325 mg Tablet PO PRN ×2 (16:27→21:10)
[2017-03-18] MEDS: Mirtazapine 15 MG TAB PO SCH (21:10)
--- NOTE | 2017-03-18 21:13 | PDOC.PN ---
- Subjective Encounter Start Date: 03/18/17 Encounter Start Time: 11:30 Patient seen and examined. No new complaints. No overnight events - Objective MAR Reviewed: Yes Vital Signs & Weight: Vital Signs (12 hours) Temp Pulse Resp BP Pulse Ox 03/18/17 17:49 99.2 F 75 16 149/59 H 92 L 03/18/17 12:00 98.3 F 57 L 14 149/79 H 93 L Weight Weight 230 lb I&O: 03/17/17 03/18/17 03/19/17 06:59 06:59 06:59 Intake Total 4170 2020 2400 Output Total 1825 900 Balance 2345 1120 2400 Result Diagrams: 03/17/17 04:52 03/16/17 14:42 Additional Labs: Accuchecks 03/18/17 03/18/17 03/18/17 20:55 17:35 11:46 POC Glucose 95 177 H 106 03/18/17 03/17/17 05:24 21:05 POC Glucose 98 102 Phys Exam - Physical Examination Constitutional: NAD Respiratory: no wheezing, no rhonchi Cardiovascular: RRR, no rub Gastrointestinal: soft, non-tender, positive bowel sounds Dx/Plan - Plan DVT proph w/SCDs IMPRESSION: 1. HTN - on Toprol 2. DM2 - on sliding scale 3. Obesity BMI 31.2 4. Depression PLAN: * Cont current meds as below * Atbx per primary service Review of Systems - Review of Systems Respiratory: negative: Cough, Dry, Shortness of Breath, Hemoptysis, SOB with Excertion, Pleuritic Pain, Sputum, Wheezing Cardiovascular: negative: chest pain, palpitations, orthopnea, paroxysmal nocturnal dyspnea, edema, light headedness - Medications/Allergies Allergies/Adverse Reactions: Allergies Allergy/AdvReac Type Severity Reaction Status Date / Time sulfamethoxazole Allergy whelps Verified 03/14/17 17:15 [From Bactrim] trimethoprim [From Bactrim] Allergy whelps Verified 03/14/17 17:15 vancomycin Allergy Hives Verified 03/14/17 17:15 Medications: Current Medications Hydrocodone Bitart/Acetaminophen (Monson 7.5/325) 1 tab PO Q4H PRN PRN Reason: Mild Pain (1-3) Last Admin: 03/16/17 11:35 Dose: 1 tab Hydrocodone Bitart/Acetaminophen (Monson 7.5/325) 1 tab PO Q8HR PRN PRN Reason: Pain Last Admin: 03/16/17 11:35 Dose: 1 tab Hydrocodone Bitart/Acetaminophen (Monson 7.5/325) 2 tab PO Q4H PRN PRN Reason: Severe Pain (7-10) Last Admin: 03/18/17 21:10 Dose: 2 tab Aspirin (Aspirin Chewable) 81 mg PO DAILY [facility] Last Admin: 03/18/17 08:12 Dose: 81 mg Dextrose/Water (Dextrose 50%) 25 gm IVP PRN PRN PRN Reason: HYPOGLYCEMIA PROTOCOL Fluoxetine HCl (Prozac) 20 mg PO DAILY [facility] Last Admin: 03/18/17 08:12 Dose: 20 mg Glucagon (Glucagon) 1 mg IM PRN PRN PRN Reason: HYPOGLYCEMIA PROTOCOL Lactated Ringer's (Lactated Ringer's) 1,000 mls @ 65 mls/hr IV .[id number] [facility] Last Admin: 03/18/17 16:19 Dose: Not Given Dextrose/Water (D5w) 1,000 mls @ 0 mls/hr IV INF PRN; As Directed PRN Reason: HYPOGLYCEMIA PROTOCOL Insulin Human Regular (Humulin R) 0 units SC .MODERATE SLIDING SC PRN; Protocol PRN Reason: MODERATE SLIDING SCALE Lamotrigine (Lamictal) 25 mg PO BID [facility] Last Admin: 03/18/17 21:10 Dose: 25 mg Levofloxacin (Levaquin) 500 mg PO 1700 [facility] Last Admin: 03/18/17 17:49 Dose: 500 mg Metformin HCl (Glucophage) 500 mg PO BID[facility] Last Admin: 03/18/17 16:27 Dose: 500 mg Metoprolol Succinate (Toprol Xl) 50 mg PO DAILY [facility] Last Admin: 03/18/17 08:12 Dose: 50 mg Mirtazapine (Remeron) 15 mg PO HS [facility] Last Admin: 03/18/17 21:10 Dose: 15 mg Morphine Sulfate (Morphine) 2 mg IV Q2H PRN PRN Reason: Moderate Pain (4-6) Last Admin: 03/18/17 08:13 Dose: 2 mg Pantoprazole Sodium (Protonix) 40 mg PO DAILY [facility] Last Admin: 03/18/17 08:12 Dose: 40 mg Sodium Chloride (Flush - Normal Saline) 10 ml IVF PRN PRN PRN Reason: Saline Flush Tramadol HCl (Ultram) 50 mg PO Q6H PRN PRN Reason: Mild Pain (1-3) Last Admin: 03/16/17 03:24 Dose: 50 mg
[2017-03-19] MEDS: Lactated Ringer's 1,000 ML IV SCH (05:06)
[2017-03-19] MEDS: metFORMIN 500 MG TAB PO SCH (09:15)
[2017-03-19] MEDS: lamoTRIgine 25 MG TAB PO SCH (09:15)
[2017-03-19] MEDS: HYDROcodone/Acetaminophen 7.5/325 mg Tablet PO PRN (09:15)
[2017-03-19] MEDS: FLUoxetine HCl 20 MG CAP PO SCH (09:16)
[2017-03-19 11:50] VITALS: BP 180/87; TEMP 97.3
== END 2017-03-19 12:36 | disposition home health service (06) | DRG 857 ==
LOC: SDC 06:31 → SURG B 09:28
PROVIDERS: ADMIT Orthopaedic Surgery Hand Surgery; ATTEND Orthopaedic Surgery Hand Surgery
PROC: 0LB50ZZ Excision of Right Lower Arm and Wrist Tendon, Open Approach (ICD-10-PCS; principal; 2017-03-14)
PROC: 0JBG0ZZ Excision of Right Lower Arm Subcutaneous Tissue and Fascia, Open Approach (ICD-10-PCS; 2017-03-17)
DX: T81.4XXA Infection following a procedure, initial encounter (principal); I69.354 Hemiplegia and hemiparesis following cerebral infarction affecting left non-dominant side; L08.9 Local infection of the skin and subcutaneous tissue, unspecified; E11.9 Type 2 diabetes mellitus without complications; B95.62 Methicillin resistant Staphylococcus aureus infection as the cause of diseases classified elsewhere; F32.9 Major depressive disorder, single episode, unspecified; E66.9 Obesity, unspecified; I10 Essential (primary) hypertension; Y83.8 Other surgical procedures as the cause of abnormal reaction of the patient, or of later complication, without mention of misadventure at the time of the procedure; T14.8XXA Other injury of unspecified body region, initial encounter; N40.0 Benign prostatic hyperplasia without lower urinary tract symptoms; M65.831 Other synovitis and tenosynovitis, right forearm; Z68.31 Body mass index [BMI] 31.0-31.9, adult; X58.XXXA Exposure to other specified factors, initial encounter; M66.831 Spontaneous rupture of other tendons, right forearm
CPT/HCPCS: 36415; 36416; 80048; 85025; 87070; 87077; 87116; 87186; 87205; 87206; A4216; G8987-GO-CJ; G8988-GO-CJ; G8989-GO-CJ; J1580; J1885; J1956; J2001; J2250; J2270; J2405; J2550; J2704; J3010; J3490; S0020